=== PATIENT | female | born 1985 | race Caucasian/White ===

== ENCOUNTER 2022-02-13 20:37 | Emergency (ER) | payer OTHER ==
[~2022-02-13] VITALS: Ht 160 cm; Wt 59.0 kg
[2022-02-14] MEDS ORDERED: KETO10TA2 PO (00:56)
[2022-02-14] MEDS ORDERED: NORFLEX100MG PO (00:56)
== END 2022-02-14 02:22 ==
LOC: ER 20:37
DX: T14.8XXA Other injury of unspecified body region, initial encounter (principal); V49.88XA Car occupant (driver) (passenger) injured in other specified transport accidents, initial encounter; Y93.89 Activity, other specified; Y92.89 Other specified places as the place of occurrence of the external cause; Y99.9 Unspecified external cause status; Z88.0 Allergy status to penicillin; Z88.8 Allergy status to other drugs, medicaments and biological substances